=== PATIENT | female | born 1990 | race Hispanic/Latino ===

== ENCOUNTER 2021-05-03 16:41 | Emergency (ER) | payer SELFPAY ==
[2021-05-03] MEDS ORDERED: Dexamethasone 4 MG TAB ONE (18:45)
[2021-05-03] MEDS ORDERED: Ventolin HFA Inhaler 60 PUFF INHALER ONE (18:45)
[2021-05-03] MEDS ORDERED: Ipratropium Bromide 2.5 ml Neb ONE ×2 (19:31→19:32)
[2021-05-03] MEDS ORDERED: Albuterol Sulfate 2.5 mg/0.5 ml Neb ONE (19:33)
== END 2021-05-03 21:15 | disposition home or self-care (01) ==
LOC: CSHERS 16:41
DX: J45.901 Unspecified asthma with (acute) exacerbation (principal); E11.9 Type 2 diabetes mellitus without complications; J45.909 Unspecified asthma, uncomplicated
CPT/HCPCS: 71045; 93005; 94644; J7611; J8540

== ENCOUNTER 2021-09-15 16:21 | Emergency (ER) | payer SELFPAY ==
[2021-09-15] MEDS ORDERED: methylPREDNISolone Sod Succ/PF 125 MG/2 ML VIAL IVP SCH (17:00)
[2021-09-15] MEDS ORDERED: methylPREDNISolone Sod Succ/PF 125 MG/2 ML VIAL ONE (17:01)
== END 2021-09-15 19:19 | disposition home or self-care (01) ==
LOC: CSHERS 16:21
DX: J45.909 Unspecified asthma, uncomplicated (principal); E11.9 Type 2 diabetes mellitus without complications
CPT/HCPCS: 96374; J2930; J7620